=== PATIENT | male | born 1960 | race Asian ===

== ENCOUNTER 2020-08-01 06:40 | Inpatient (IN) | payer OTHER ==
[2020-08-01] MEDS ORDERED: Gabapentin 300 MG Cap PO ONE (06:45)
[2020-08-01] MEDS ORDERED: Acetaminophen 500 MG Tab PO ONE (06:45)
[2020-08-01] MEDS ORDERED: Celecoxib 200 MG Cap PO ONE (06:45)
[2020-08-01] MEDS ORDERED: Scopolamine 1.5 MG Transdermal Patch TRDERM SCH (06:45)
[2020-08-01] MEDS ORDERED: cefOXitin 2 GM Vial ONE (06:55)
[2020-08-01] MEDS ORDERED: Scopolamine 1.5 MG Transdermal Patch TOP ONE (07:00)
[2020-08-01] MEDS ORDERED: fentaNYL 250 MCG/5 ML SDV ONE (07:10)
[2020-08-01] MEDS ORDERED: Dexamethasone 4 MG/ML SDV ONE (07:10)
[2020-08-01] MEDS ORDERED: Succinylcholine 200 MG/10 ML MDV ONE (07:10)
[2020-08-01] MEDS ORDERED: Glycopyrrolate 0.2 MG/ML 5 ML MDV ONE (07:10)
[2020-08-01] MEDS ORDERED: Rocuronium 50 MG/5 ML Vial ONE (07:10)
[2020-08-01] MEDS ORDERED: Ondansetron 4 MG/2 ML SDV ONE (07:10)
[2020-08-01] MEDS ORDERED: Neostigmine Methylsulfate 1 MG/ML 5 ML Syringe ONE (07:10)
[2020-08-01] MEDS ORDERED: Propofol 200 MG/20 ML SDV ONE (07:10)
[2020-08-01] MEDS ORDERED: Dextrose 5%-Lactated Ringers 1,000 ML IV SCH ×2 (07:15→13:00)
[2020-08-01] MEDS ORDERED: cefOXitin 2 GM in Sodium Chloride 0.9% 50 ML IV ONE (08:45)
[2020-08-01] MEDS ORDERED: SODIUM CHLORIDE 0.9% IV ONE (09:00)
[2020-08-01] MEDS ORDERED: Ketamine 500 MG/5 ML MDV IV SCH (09:00)
[2020-08-01] MEDS ORDERED: Ketamine 50 MG in Sodium Chloride 0.9% 49.5 ML IV SCH (09:00)
[2020-08-01] MEDS ORDERED: MAGNESIUM SULFATE IV ONE (09:00)
[2020-08-01] MEDS ORDERED: Magnesium Sulfate 3.9 GM in Sodium Chloride 0.9% 100 ML IV SCH (09:00)
[2020-08-01] MEDS ORDERED: fentaNYL 100 MCG/2 ML SDV ONE (11:05)
[2020-08-01] MEDS ORDERED: hydrOXYzine HCL 100 MG/2 ML SDV IM ONE (11:15)
[2020-08-01] MEDS ORDERED: Sugammadex Sodium 200 MG/2 ML VIAL ONE (11:28)
[2020-08-01] MEDS ORDERED: Glucagon,Human Recombinant 1 MG Vial IM PRN ×2 (11:38→13:00)
[2020-08-01] MEDS ORDERED: 50% Dextrose in Water 50 ML Syringe IVPUSH PRN ×2 (11:38→13:00)
[2020-08-01] MEDS ORDERED: Insulin Lispro 100 Unit/ML 3 ML KwikPen SUBCUT ONE (11:45)
[2020-08-01] MEDS ORDERED: Cyclobenzaprine 10 MG Tab PO PRN (12:58)
[2020-08-01] MEDS ORDERED: Labetalol 20 MG/4 ML Syringe IVPUSH PRN (13:00)
[2020-08-01] MEDS ORDERED: Metoclopramide 10 MG/2 ML SDV IVPUSH PRN (13:00)
[2020-08-01] MEDS ORDERED: HYDROmorphone 1 MG/ML Syringe IV PRN (13:00)
[2020-08-01] MEDS ORDERED: HYDROmorphone 0.5 MG/0.5 ML Syringe IVPUSH PRN (13:00)
[2020-08-01] MEDS ORDERED: Ondansetron 4 MG/2 ML SDV IVPUSH PRN (13:00)
[2020-08-01] MEDS ORDERED: hydrOXYzine HCL 100 MG/2 ML SDV IM PRN (13:00)
[2020-08-01] MEDS ORDERED: Acetaminophen 500 MG Tab PO PRN (13:00)
[2020-08-01] MEDS ORDERED: diphenhydrAMINE 50 MG/ML SDV IVPUSH PRN (13:00)
[2020-08-01] MEDS ORDERED: Calcium Gluconate 10% 1 GM/10 ML SDV IVPUSH PRN (13:00)
[2020-08-01] MEDS ORDERED: oxyCODONE 5 MG Tab PO PRN (13:00)
[2020-08-01] MEDS ORDERED: Pantoprazole 40 MG Vial IVPUSH SCH (14:00)
[2020-08-01] MEDS: Gabapentin 250 MG/5 ML Solution ML 470 ML Bottle PO SCH ×2 (14:39→20:08)
[2020-08-01] MEDS: Acetaminophen 500 MG Tab PO SCH ×2 (14:39→20:03)
[2020-08-01] MEDS: cefOXitin 2 GM in Sodium Chloride 0.9% 50 ML IV SCH ×2 (14:40→20:08)
[2020-08-01] MEDS ORDERED: Lactated Ringers 1,000 ML IV SCH (15:45)
[2020-08-01] MEDS ORDERED: MVI, Adult with Vitamin K 10 ML, Thiamine 200 MG, Zinc/Copper/Manganese/Selenium 1 ML i... IV SCH ×4 (16:00)
[2020-08-01] MEDS: Insulin Lispro 100 Unit/ML 3 ML KwikPen SUBCUT PRN ×2 (16:45→22:17)
[2020-08-01] MEDS: metFORMIN 500 MG Tab PO SCH (16:46)
[2020-08-01] MEDS ORDERED: Coagulation Factor VIIa Recombinant (per MCG) 2 MG Vial IVPUSH ONE (18:42)
[2020-08-01] MEDS ORDERED: Tranexamic Acid 1,000 MG in Sodium Chloride 0.9% 50 ML IV ONE (18:42)
[2020-08-01] MEDS: Heparin Sodium 5,000 Units/ML Vial SUBCUT SCH (19:48)
[2020-08-01] MEDS ORDERED: Insulin Glargine,Human Rec. Analog 100 Units/ML 3 ML Pen SUBCUT ONE (21:00)
[2020-08-02] MEDS: cefOXitin 2 GM in Sodium Chloride 0.9% 50 ML IV SCH (02:39)
[2020-08-02] MEDS ORDERED: Iopamidol 612 MG/ML 50 ML SDV PO STA (03:51)
[2020-08-02] MEDS: Acetaminophen 500 MG Tab PO SCH (05:48)
[2020-08-02] MEDS ORDERED: Insulin Glargine,Human Rec. Analog 100 Units/ML 3 ML Pen SUBCUT ONE ×2 (06:38→21:00)
[2020-08-02] MEDS ORDERED: Celecoxib 200 MG Cap PO PRN (08:27)
[2020-08-02] MEDS: metFORMIN 500 MG Tab PO SCH ×2 (08:34→17:46)
[2020-08-02] MEDS: Sertraline 50 MG Tab PO SCH (08:35)
[2020-08-02] MEDS: Losartan 50 MG Tab PO SCH (08:36)
[2020-08-02] MEDS: Aspirin 81 MG Tab.EC PO SCH (08:38)
[2020-08-02] MEDS: amLODIPine 5 MG Tab PO SCH (08:39)
[2020-08-02] MEDS: SCOPOLAMINE PATCH CHECK TOP SCH (08:39)
[2020-08-02] MEDS: Ezetimibe 10 MG Tab PO SCH (08:40)
[2020-08-02] MEDS: Heparin Sodium 5,000 Units/ML Vial SUBCUT SCH ×2 (08:48→20:05)
[2020-08-02] MEDS ORDERED: Celecoxib 200 MG Cap PO SCH (09:00)
[2020-08-02] MEDS ORDERED: Metoclopramide 10 MG Tab PO PRN (10:09)
[2020-08-02] MEDS: Ondansetron 4 MG Tab.DIS PO PRN (10:17)
[2020-08-02] MEDS: Gabapentin 250 MG/5 ML Solution ML 470 ML Bottle PO SCH ×3 (12:42→20:10)
[2020-08-02] MEDS: buPROPion 100 MG Tab PO SCH ×2 (12:42→20:06)
[2020-08-02] MEDS: Insulin Lispro 100 Unit/ML 3 ML KwikPen SUBCUT PRN (12:46)
[2020-08-02] MEDS: Pantoprazole 40 MG Delayed-Release Granules 1 Packet PO SCH (14:17)
[2020-08-03] MEDS: metFORMIN 500 MG Tab PO SCH ×2 (07:25→17:19)
[2020-08-03] MEDS ORDERED: Magnesium Hydroxide 400 MG/5 ML Susp 30 ML Cup PO PRN (07:35)
[2020-08-03] MEDS: Sertraline 50 MG Tab PO SCH (08:24)
[2020-08-03] MEDS: Losartan 50 MG Tab PO SCH (08:24)
[2020-08-03] MEDS: Ezetimibe 10 MG Tab PO SCH (08:24)
[2020-08-03] MEDS: Aspirin 81 MG Tab.EC PO SCH (08:24)
[2020-08-03] MEDS: Heparin Sodium 5,000 Units/ML Vial SUBCUT SCH ×2 (08:25→20:07)
[2020-08-03] MEDS: amLODIPine 5 MG Tab PO SCH (08:25)
[2020-08-03] MEDS: buPROPion 100 MG Tab PO SCH ×2 (08:25→20:07)
[2020-08-03] MEDS: SCOPOLAMINE PATCH CHECK TOP SCH (08:26)
[2020-08-03] MEDS: Gabapentin 250 MG/5 ML Solution ML 470 ML Bottle PO SCH ×3 (08:32→20:07)
[2020-08-03] MEDS ORDERED: Cyanocobalamin (Vitamin B12) 1,000 MCG/ML SDV IM ONE (09:00)
[2020-08-03] MEDS ORDERED: Magnesium Hydroxide 400 MG/5 ML Susp 30 ML Cup PO ONE (09:00)
--- NOTE | 2020-08-03 12:11 | PN ---
DATE OF SERVICE: 08/02/2020 The patient is postop day 1 from a laparoscopic Dali-en-Y gastric bypass along with diaphragmatic hernia repair and liver biopsies. The liver findings were reviewed with the patient. We will provide some photos for him to take to his personal physician postoperatively. Urine output has been quite good. His creatinine is up a little bit, was 1.24 preoperatively and 1.7 this morning. The blood sugars are still running somewhat high. We will add additional dose of Lantus this morning as well as some Lantus this evening, and his IV came off, so we will discontinue the IV and IV medications and recheck some labs in the morning. It was oozing somewhat from the ALISA drain beginning early postoperatively. This seems to have waned through the night and the patient did receive a dose of activated factor VII and tranexamic acid and that is now seeming to have stopped. We will restart some heparin with the p.m. dose today. Otherwise, maximize activity and work with pulmonary toilet, go up to a step-2 diet. Archie Rascon MD /[id number]
[2020-08-03] MEDS: Pantoprazole 40 MG Delayed-Release Granules 1 Packet PO SCH (15:00)
[2020-08-03] MEDS ORDERED: Insulin Glargine,Human Rec. Analog 100 Units/ML 3 ML Pen SUBCUT ONE (21:00)
[2020-08-04] MEDS: metFORMIN 500 MG Tab PO SCH (08:58)
[2020-08-04] MEDS: Heparin Sodium 5,000 Units/ML Vial SUBCUT SCH (08:59)
[2020-08-04] MEDS: amLODIPine 5 MG Tab PO SCH (08:59)
[2020-08-04] MEDS: Ondansetron 4 MG Tab.DIS PO PRN (08:59)
[2020-08-04] MEDS: Ezetimibe 10 MG Tab PO SCH (08:59)
[2020-08-04] MEDS: buPROPion 100 MG Tab PO SCH (09:00)
[2020-08-04] MEDS: Aspirin 81 MG Tab.EC PO SCH (09:00)
[2020-08-04] MEDS: Sertraline 50 MG Tab PO SCH (09:02)
[2020-08-04] MEDS: Losartan 50 MG Tab PO SCH (09:06)
[2020-08-04] MEDS: Gabapentin 250 MG/5 ML Solution ML 470 ML Bottle PO SCH (09:06)
--- NOTE | 2020-08-04 09:22 | CR ---
[facility] HISTORY: Postbariatric surgery FINDINGS: Patient swallowed water-soluble contrast. Upright views of the abdomen show no evidence of extravasation or obstruction. There is a drainage tube in the left upper quadrant. IMPRESSION: Status post bariatric surgery No extravasation or obstruction seen
--- NOTE | 2020-08-04 12:45 | DISCH ---
ADMISSION DIAGNOSES: 1. Morbid obesity, BMI 40.9. 2. Diabetes type 2. 3. Coronary artery disease. 4. Fatty liver disease. 5. Hyperlipidemia. DISCHARGE DIAGNOSES: Diagnostic laparoscopy with: 1. Laparoscopic Dali-en-Y gastric bypass surgery. 2. Liver biopsy. 3. Repair of diaphragmatic hernia. 4. Excision of mediastinal lipoma. 5. Partial gastrectomy. POSTOPERATIVE DIAGNOSES: 1. Morbid obesity. 2. Moderate hepatomegaly and probable early cirrhosis. 3. Mediastinal lipoma. 4. Diaphragmatic hernia. 5. Segment of the stomach ischemia after pouch formation. Date of procedure, 08/01/2020. Surgeon: Archie Rascon MD. HISTORY: Bryan is a 59-year-old male with longstanding history of morbid obesity and increasing comorbidities. After preoperative evaluation and discussion of possible risks and possible complications, he wished to proceed with surgical procedure. HOSPITAL COURSE: Bryan had his surgery on 08/01/2020. He had no operative complications. On postoperative day 1, his upper GI was normal. He was started on a Step 2 with no cereal gastric bypass diet. He also was covered with Lantus 80 units subcu at h.s. and 40 units in the a.m. Home medications were started. Blood sugars were monitored 4 times a day. On postop day 2, oral intake was not adequate. His creatinine increased to 1.7, and his GFR was 42. On 08/04/2020, he was able to be discharged to home. Blood sugar in the morning was 89. His creatinine was 1.2 and GFR greater than 60. Oral intake 1950. Urine output, independently voided. ALISA drain put out 120 mL of a light pink drainage. He had adequate education. Pain was controlled. Activity was good. Vital signs stable, and he was able to be discharged to home. PHYSICAL EXAMINATION: GENERAL: Bryan is a 59-year-old male. VITAL SIGNS: Height is 5 feet 10 inches, weight is 285 pounds. TPR is 96.1, 66, 16; blood pressure 141/75. HEENT: Negative. NECK: Supple. HEART: Regular rate and rhythm. LUNGS: Clear. ABDOMEN: Incisions look good. Sutures intact. ALISA drain is still in, but will be removed before discharge. Abdominal binder is on. EXTREMITIES: Without peripheral edema. DISPOSITION: Discharged to home. CONDITION: Stable and improving. FOLLOWUP: Appointment with Beba See PA-C, on 08/11/2020 at 10:15 a.m. He is to arrive at 9:45 for CBC, CMP, mag, phos, laboratory work. HOME MEDICATIONS: Zofran ODT 4 mg p.o. q.6 hours p.r.n. nausea, #30; metformin 1000 mg p.o. b.i.d.; Wellbutrin 100 mg p.o. b.i.d.; Norvasc 5 mg oral daily; Zoloft 150 mg p.o. daily; rosuvastatin calcium 40 mg p.o. daily; losartan, Cozaar 100 mg p.o. daily; Neurontin 300 mg p.o. t.i.d.; Zetia 10 mg p.o. daily; Celebrex 200 mg p.o. b.i.d.; Dovonex 0.005% cream 1 applicator topical daily p.r.n.; aspirin 81 mg p.o. daily; Lac-Hydrin 12% cream 1 applicator topical p.r.n. He is to discontinue taking the Humalog insulin and Lantus. DIET: After discharge is Step 2 gastric bypass diet with no cereal until date 08/23/2020. ACTIVITY: No lifting greater than 10 pounds for 2 weeks. OTHER ACTIVITY: Walk 6 times daily in your home. Driving: Do not drive for 1 week. Shower/bathing: May shower. Keep operative site clean and dry. Wear abdominal binder for 2 weeks and then as tolerated. Notify provider if any fever, increased pain, swelling, redness, drainage, nausea, or vomiting. OTHER INSTRUCTIONS: 1. Check blood sugars 4 times a day and write them down. 2. Call clinic or send to [employer] [facility] Message with readings of blood sugars daily. 3. Keep record of what you eat and drink each day. 4. Use incentive spirometer 10 times every hour while awake. /[id number]
--- NOTE | 2020-08-05 13:32 | PN ---
DATE OF SERVICE: 08/03/2020 The patient has been afebrile with stable vital signs. Oral intake has been little bit marginal and we will need to encourage that, increasing today. His blood sugars have come quite a bit down. He received 40 of Lantus yesterday morning with relatively high blood sugars at that time, and now this morning after receiving 80 units of Lantus last night along with continuation of the metformin, his blood sugar is 122. Given this, we will back down the Lantus to 40 units at night. Recheck some laboratories in the morning. He does not appear to be well versed in management of the diabetes, and so as to avoid problems with low blood sugars, I think we will keep him 1 more day and then have him meet with a natural resources extension educator and family prior to discharge tomorrow. We will also need to recheck the labs with regard to the creatinine. If that is bumped up any more, he will probably need to discontinue the metformin and perhaps substitute something like Januvia. Archie Rascon MD /[id number]
--- NOTE | 2020-08-06 13:01 | OR ---
DATE OF PROCEDURE: 08/01/2020 SURGEON: Archie Rascon MD PREOPERATIVE DIAGNOSIS: Morbid obesity. POSTOPERATIVE DIAGNOSES: 1. Morbid obesity. 2. Moderate hepatomegaly with micronodular pattern suggestive of possible early cirrhosis. 3. Paraesophageal diaphragmatic hernia associated with mediastinal lipoma. 4. Segment of stomach ischemic following a pouch formation. OPERATIVE PROCEDURES: Diagnostic laparoscopy with: 1. Laparoscopic Dali-en-Y gastric bypass with long limb gastroenterostomy (06498). 2. Zeferino-Cut needle liver biopsy (82462). 3. Repair of paraesophageal diaphragmatic hernia (63883). 4. Excision of mediastinal lipoma (38630). 5. Partial gastrectomy (00475). ANESTHESIA: General. WAREHOUSE ENGINEER: Beba See PA-C INDICATIONS FOR PROCEDURE: This is a 59-year-old presenting with longstanding morbid obesity and increasingly significant comorbidities. After preoperative evaluation and discussion, he wished to proceed with a Dali-en-Y gastric bypass. Potential risks of the procedure including bleeding, infection, injury to underlying viscera, problems with leaks from GI tract closures were reviewed along with the remote possibility of cardiopulmonary, septic, or hemorrhagic complications leading to , and the patient wishes to proceed. DETAILS OF PROCEDURE: The patient was taken to the operating room and placed in a supine position. After general endotracheal anesthesia was induced, he was converted to a lithotomy position and the abdomen prepped and draped. 15 cm inferior and 5 cm left of the xiphoid process, a transverse incision was made and the peritoneal cavity entered under direct vision with an Optiview trocar, inflated to 15 mmHg pressure of CO2. Bilateral transversus abdominis plane blocks were then placed and 5 additional trocars were also placed across the upper and mid abdomen. It was initially noted that the patient had a moderately enlarged liver. The liver was diffusely both on the right and left sides affected by a micronodular appearance possible early cirrhosis. Of note, at no point did we see any signs of portal hypertension. The liver biopsy sites did not have any untoward bleeding in along with the liver, it was not enlarged, and there was no distention of the mesenteric venous system. There did not appear to be any evidence of portal hypertension. Given this, we elected to proceed with a Dali-en-Y gastric bypass being somewhat less aggressive with the limb lengths compared to what would typically be done with someone with type 2 diabetes mellitus requiring a large amount of insulin as in this case. At this point, Zeferino-Cut needle biopsy was obtained from the left lobe of the liver and minimal bleeding from the biopsy sites was controlled with electrocautery. The omentum was then divided in the midline up to the level of the transverse colon. This allowed identification of the small bowel to the ligament of Treitz. Small bowel was then traced out 150 cm distal to that point, where it was divided transversely with a ESTEFANY stapler. Small bowel was then traced out additional 175 cm, where a [id number] enteroenterostomy was accomplished with internal firing of the Endo-ESTEFANY 60 mm stapler. Common opening was then closed transversely with the same stapler and angles anastomosed and mesenteric defect approximated with some 0 Ethibond sutures reinforced with fibrin sealant. The divided end of the Dali limb was then from the mesentery for a few centimeters, which allowed an antecolic position of the Dali limb up along with the gastroesophageal junction without tension. The liver was then retracted anteriorly. The patient was noted to have moderate-sized paraesophageal diaphragmatic hernia containing some perigastric fat and a tongue of omentum. This was reduced. The peritoneum overlying was incised and reflected downward. During the course of the crural dissection, a mediastinal lipoma was encountered, and this was removed so as to facilitate a more adequate crural repair, which was then accomplished with 0 Ethibond sutures and reinforced PTFE pledgets. Gastrointestinal catheter was then inflated with 15 mL of air and pulled up snugly against the EG junction. Gastric wall over the apex balloon was then marked with electrocautery and balloon catheter deflated and pulled up in the esophagus. The lesser omental tissue adjacent to the gastric cardia was then incised allowing dissection behind the stomach at that level. Pouch formation was initiated with transverse firing of the ESTEFANY stapler at the level of the cauterized serafin on the gastric cardia and then completed with additional firings up to and through the angle of His. Upon completion of the pouch, the patient was noted to have an ischemic area of the bypassed portion of the stomach and this was excised with 2 additional ESTEFANY staple lines and that specimen delivered from the field. The anvil of a 25 mm EEA stapler was then attached to the Dukes sump type tube, latter brought down through the mouth, taken out through small opening in the gastric pouch, allowing the anvil likewise to be pulled down to within the gastric pouch. Divided end of the Dali limb was then opened and main body of EEA stapler passed several centimeters into the lumen of small bowel, brought up the anvil, united with it thus creating the gastrojejunostomy. Upon removal of the stapler, double donuts of mucosa were noted within it. Small bowel was closed off with a vascular staple line. Gastrojejunostomy was reinforced with some 3-0 Vicryl seromuscular stitch along with fibrin sealant. Leak test was accomplished with injection of 120 mL of air in the gastric pouch while it was submerged with a cefoxitin-containing saline solution. No leaks were identified. A single Taras- Bain drain was taken out through the left lateral trocar site and positioned adjacent to the gastrojejunostomy, from there up into the splenic fossa. Trocars were then sequentially removed, peritoneal cavity deflated. Incisions were closed with 4-0 Vicryl skin stitch as was used to fix the drain as well. The patient was taken to the recovery room in satisfactory condition. There were no evident complications. Physician dietetic assistant, Beba See, played an essential role in assisting in this case, helping to position the patient, retract structures as needed, as well as suturing and cutting sutures when indicated. Her presence improved patient safety and decreased operative time. Archie Rascon MD /[id number]
== END 2020-08-04 14:40 | disposition home or self-care (01) | DRG 621 ==
LOC: JP.MS 06:40 → JP.SDS 06:40 → EDSTATUS 08:15 → JP.MS 11:40
PROVIDERS: ADMIT Surgery; ATTEND Surgery
PROC: 0D164ZA Bypass Stomach to Jejunum, Percutaneous Endoscopic Approach (ICD-10-PCS; principal; 2020-08-01)
PROC: 0FB24ZX Excision of Left Lobe Liver, Percutaneous Endoscopic Approach, Diagnostic (ICD-10-PCS; 2020-08-01)
PROC: 0BQT4ZZ Repair Diaphragm, Percutaneous Endoscopic Approach (ICD-10-PCS; 2020-08-01)
PROC: 0DB64ZZ Excision of Stomach, Percutaneous Endoscopic Approach (ICD-10-PCS; 2020-08-01)
PROC: 0JB63ZZ Excision of Chest Subcutaneous Tissue and Fascia, Percutaneous Approach (ICD-10-PCS; 2020-08-01)
DX: E66.01 Morbid (severe) obesity due to excess calories (principal); I25.10 Atherosclerotic heart disease of native coronary artery without angina pectoris; K76.0 Fatty (change of) liver, not elsewhere classified; E78.5 Hyperlipidemia, unspecified; R16.0 Hepatomegaly, not elsewhere classified; D17.4 Benign lipomatous neoplasm of intrathoracic organs; K44.9 Diaphragmatic hernia without obstruction or gangrene; I99.8 Other disorder of circulatory system; Z68.41 Body mass index [BMI] 40.0-44.9, adult; K74.60 Unspecified cirrhosis of liver; Z79.899 Other long term (current) drug therapy; Z79.82 Long term (current) use of aspirin; Z79.4 Long term (current) use of insulin; I12.9 Hypertensive chronic kidney disease with stage 1 through stage 4 chronic kidney disease, or unspecified chronic kidney disease; N18.30 Chronic kidney disease, stage 3 unspecified; E11.22 Type 2 diabetes mellitus with diabetic chronic kidney disease; G47.30 Sleep apnea, unspecified; Z99.81 Dependence on supplemental oxygen
CPT/HCPCS: 36415; 74240; 74240-26; 80053; 82962; 83735; 83880; 84100; 85025; 85027; 86850; 86900; 86901; 94762; A9270-GY; C9113; J0171; J0330; J0694; J1100; J1200; J1644; J1815; J1815-GY; J2405; J2704; J2710; J2765; J2795; J3010; J3410; J3411; J3420; J3475; J3490; J7050; J7120; J7121; J7189; Q9967